=== PATIENT | male | born 1945 | race Caucasian/White ===

== ENCOUNTER 2019-06-18 09:47 | Emergency (ER) | payer MEDICARE, BC ==
[2019-06-18] MEDS ORDERED: ISOVUE-370 76%-LOCM 1 ML ONE (10:13)
--- NOTE | 2019-06-18 10:28 | RAD ---
PORTABLE CHEST: Date: 06/18/19 HISTORY: Cough, dyspnea. COMPARISON: 09/20/17 study. FINDINGS: Heart size and mediastinum are within normal limits. The lungs are clear of any infiltrative process. No significant bony findings. IMPRESSION: No active intrathoracic disease. POS: [facility]
[2019-06-18 11:02] LABS: #Basophils 0.1 thou/uL (0.0-0.2); #Eosinphils 1.4 thou/uL (0.0-0.7); #Lymphocytes 1.8 thou/uL (1.20-3.40); #Monocytes 1.1 thou/uL (0.11-0.59); #Neutrophils 3.8 thou/uL (1.40-6.50); %Basophils 0.6 % (0.0-1.0); %Eosinophils 17.1 % (0.0-10.0); %Lymphocytes 21.6 % (21.0-51.0); %Monocytes 13.9 % (0.0-10.0); %Neutrophils 46.7 % (42.0-75.0); Hemoglobin 15.9 g/dL (14.0-18.0); Mean Corpuscular HGB CONC 34.3 g/dL (32.0-36.0); Mean Corpuscular Hemoglobin 30.8 pg (27.0-31.0); Mean Corpuscular Volume 89.8 fL (78.0-98.0); RBC Distribution Width 14.1 % (11.5-14.5); Red Blood Cell (RBC) Count 5.15 mill/uL (4.70-6.10); White Blood Cell (WBC) Count 8.1 thou/uL (4.8-10.8)
[2019-06-18 11:20] LABS: ALT (SGPT) 22 U/L (8-55); AST (SGOT) 30 U/L (5-34); Albumin 4.3 g/dL (3.4-4.8); Alkaline Phosphatase 140 U/L (40-110); Anion Gap 12 mmol/L (10-20); BUN (Urea Nitrogen) 20 mg/dL (8.4-25.7); Bilirubin, Total 0.9 mg/dL (0.2-1.2); CK (CPK) 127 U/L (30-200); Calc. Creatinine Clearance 0 mL/min (70-130); Calcium 9.6 mg/dL (7.8-10.44); Carbon Dioxide 29 mmol/L (23-31); Chloride 97 mmol/L (98-107); Estimated GFR-MDRD 79; Glucose 112 mg/dL (83-110); Potassium 4.1 mmol/L (3.5-5.1); Protein, Total 7.3 g/dL (5.8-8.1); Sodium 134 mmol/L (136-145)
[2019-06-18 11:25] LABS: MDiff Complete? YES; Mean Platelet Volume 7.3 fL (7.4-10.4); Platelet Count 116 thou/uL (130-400); Platelet Morphology Comment Appears Decreased; Polychromasia SLIGHT = 2-3 cells (100X) (0-2/hpf); Tear Drops SLIGHT = 2-5 cells (100X) (0-1/hpf)
[2019-06-18] MEDS ORDERED: methylPREDNISolone Sod Succ/PF 125 MG/2 ML VIAL ONE (12:05)
[2019-06-18] MEDS ORDERED: cefTRIAXone\\ROCEPHIN 1 GM VIAL ONE (12:05)
[2019-06-18] MEDS ORDERED: Azithromycin 500 MG in Sodium Chloride 0.9% 250 ML 250 ML IVPB SCH (12:15)
[2019-06-18] MEDS ORDERED: Azithromycin 500 MG VIAL ONE (13:05)
--- NOTE | 2019-06-18 14:44 | CT ---
CT CHEST WITH IV CONTRAST: Date: 06/18/19 HISTORY: Shortness of breath. Cough. FINDINGS: There are a few prominent but nonenlarged lymph nodes in the mediastinum and hilar regions. No pleura l or pericardial effusions are seen. The thoracic aorta is well opacified without aneurysm or dissect ion. No pneumothoraces, lobar consolidation, lung nodules, or masses are identified. There are degene rative changes in the spine. Upper abdominal tomograms are unremarkable. IMPRESSION: No significant abnormalities are seen. POS: [facility]
== END 2019-06-18 15:11 | disposition home or self-care (01) ==
LOC: ERS 09:47
DX: J45.909 Unspecified asthma, uncomplicated (principal); I10 Essential (primary) hypertension; F41.9 Anxiety disorder, unspecified; F32.9 Major depressive disorder, single episode, unspecified; Z79.899 Other long term (current) drug therapy; Z79.82 Long term (current) use of aspirin
CPT/HCPCS: 36415; 71045; 71260; 80053; 82550; 83605; 83880; 84145; 84484; 85025; 87040; 93005; 94640; 96365; 96367; 96375; J0456; J0696; J2930; J7620; Q9966

== ENCOUNTER 2019-09-30 09:31 | Outpatient (CLI) | payer MEDICARE, BC ==
--- NOTE | 2019-09-30 10:02 | RAD ---
2 view chest: [09/30/2019] Comparison:08/12/2019 HISTORY: Dyspnea FINDINGS: Heart and mediastinal contours are grossly unremarkable. No pneumothorax or pleural fluid. No focal consolidation or alveolar edema. IMPRESSION: No acute findings.
== END 2019-09-30 09:32 | disposition home or self-care (01) ==
LOC: RAD 09:31
PROVIDERS: ATTEND Internal Medicine Critical Care Medicine
DX: R06.00 Dyspnea, unspecified (principal)
CPT/HCPCS: 71046

== ENCOUNTER 2019-10-15 12:29 | Inpatient (IN) | payer MEDICARE, BC ==
--- NOTE | 2019-10-15 12:59 | RAD ---
XR Chest 1 View Portable HISTORY: Shortness of breath, dyspnea, fever COMPARISON: 06/18/2019 FINDINGS: The heart size is normal. The lungs are well expanded without focal areas of consolidation, pneumothorax or large pleural effusions. There is suggestion of a small left pleural effusion with adjacent mild infiltrates/atelectatic change.
[2019-10-15 13:09] LABS: Hemoglobin 14.8 g/dL (14.0-18.0); Mean Corpuscular Hemoglobin 28.8 pg (27.0-31.0); Mean Corpuscular Volume 89.9 fL (78.0-98.0); RBC Distribution Width 15.8 % (11.5-14.5); Red Blood Cell (RBC) Count 5.14 mill/uL (4.70-6.10); White Blood Cell (WBC) Count 5.8 thou/uL (4.8-10.8)
[2019-10-15 13:29] LABS: Band 24 % (5-11); Eosinophils 2 % (0-10); Lymphocytes 8 % (21-51); MDiff Complete? YES; Mean Platelet Volume 8.4 fL (7.4-10.4); Monocytes 20 % (0-10); Neutrophil 35 % (42-75); Platelet Count 75 thou/uL (130-400); Platelet Morphology Comment Appears Decreased; Polychromasia SLIGHT = 2-3 cells (100X) (0-2/hpf); Reactive Lymphocytes 10 % (0-10); Tear Drops SLIGHT = 2-5 cells (100X) (0-1/hpf)
[2019-10-15 13:32] LABS: ALT (SGPT) 30 U/L (8-55); AST (SGOT) 50 U/L (5-34); Albumin 3.9 g/dL (3.4-4.8); Alkaline Phosphatase 115 U/L (40-110); Anion Gap 14 mmol/L (10-20); BUN (Urea Nitrogen) 19 mg/dL (8.4-25.7); Bilirubin, Total 0.9 mg/dL (0.2-1.2); Calc. Creatinine Clearance 0 mL/min (70-130); Calcium 9.3 mg/dL (7.8-10.44); Carbon Dioxide 23 mmol/L (23-31); Chloride 100 mmol/L (98-107); Estimated GFR-MDRD 75; Globulin 3.2 g/dL (2.4-3.5); Glucose 80 mg/dL (83-110); Lipase 61 U/L (8-78); Potassium 4.8 mmol/L (3.5-5.1); Protein, Total 7.1 g/dL (5.8-8.1); Sodium 132 mmol/L (136-145)
[2019-10-15] MEDS ORDERED: Cefepime 2 GM VIAL ONE (13:49)
[2019-10-15] MEDS ORDERED: Calcium Carbonate 500 MG ChewTAB PO PRN (14:34)
[2019-10-15] MEDS ORDERED: Ondansetron PF 4 MG/2 ML Vial IVP PRN (14:34)
[2019-10-15] MEDS ORDERED: Ondansetron ODT 4 MG TAB PO PRN (14:34)
[2019-10-15] MEDS ORDERED: hydrALAZINE 20 MG/ML VIAL SLOW IVP PRN (14:37)
[2019-10-15 14:45] LABS: INR-International Normal Ratio 1.1; PTT 31.8 SEC (22.9-36.1); Prothrombin Time 13.9 SEC (12.0-14.7)
[2019-10-15 15:19] LABS: Magnesium 1.8 mg/dL (1.6-2.6)
[2019-10-15] MEDS ORDERED: Vancomycin HCl 500 MG VIAL ONE (16:31)
[2019-10-15 17:00] LABS: Bilirubin Negative (Negative); Blood, Urine Negative (Negative); Clarity Clear (Clear); Glucose, Urine (Dipstick) Normal (Negative); Leukocyte Negative Leu/uL (Negative); Nitrite Negative (Negative); Protein, Urine (Dipstick) Negative (Neg-Trace); Urobilinogen Normal mg/dL (Less than 2)
[2019-10-15 17:47] VITALS: BMI 31.7
[2019-10-15] MEDS: Acetaminophen 325 MG TAB PO PRN (18:37)
[2019-10-15] MEDS: Dextrose 5 % And 0.9 % NaCl 1,000 ML IV SCH (18:38)
[2019-10-15] MEDS ORDERED: Loratadine 10 MG TAB PO PRN (20:39)
[2019-10-15] MEDS ORDERED: clonazePAM 1 MG TAB PO SCH (21:00)
--- NOTE | 2019-10-15 21:25 | HP ---
PRIMARY CARE: Dr. Alegria. CHIEF COMPLAINT: Persistent fever with shortness of breath. The patient failed outpatient therapy. HISTORY OF PRESENT ILLNESS: The patient is a 74-year-old male with hypertension , hyperlipidemia, seasonal allergies, presented to the emergency room with above complaints. History obtained from the patient. No family at the bedside. Over the last 3 months, the patient had shortness of breath that is progressively getting worse. He gets short of breath on [id number] exertion. No wheezing, leg swelling, or orthopnea reported. Over the last 1 week the patient has fever and was started on antibiotics over the last 3 days. He was also evaluated by Dr. Hernandez last month. He also had an echocardiogram last month that showed normal ejection fraction. Flu testing was negative per patient's report. His symptoms progressively got worse, for which his PCP referred him to the emergency room. No cough, chest pain, palpitations, or syncope reported. PAST MEDICAL HISTORY: 1. Hypertension. 2. Hyperlipidemia. 3. Anxiety. 4. Seasonal allergies. 5. Unexplained shortness of breath of 3 months' duration. PAST SURGICAL HISTORY: Reviewed with the patient and none. SOCIAL HISTORY: The patient currently lives at home with his . His is the decision maker. He is full code. No smoking, alcohol, or drug use. FAMILY HISTORY: Negative for premature coronary artery disease. CURRENT HOME MEDICATIONS: 1. Lipitor 40 mg at bedtime. 2. Clonazepam 1 mg at bedtime. 3. Lisinopril/HCTZ daily. 4. Claritin 10 mg daily. 5. Metoprolol/hydrochlorothiazide 50/25 mg as directed. 6. Oxymetazoline nasal spray as needed. 7. Venlafaxine as needed. REVIEW OF SYSTEMS: All other review of systems was reviewed and were found negative. PHYSICAL EXAMINATION: VITAL SIGNS: Temperature 101.8 with pulse rate of 106, respirations of 20, blood pressure of 126/80, O2 saturation 94% on room air. GENERAL: 74-year-old male in mild distress. HEENT: Head atraumatic and normocephalic. Sclerae anicteric. Moist mucous membranes. No oral lesion. NECK: Supple. No JVD appreciated. No carotid bruit. LUNGS: Essentially clear to auscultation bilaterally with few rhonchi. No wheezing or rales appreciated. No accessory muscle use. HEART: S1 and S2 present. Regular. No rubs or gallops. ABDOMEN: Soft. Bowel sounds present. No rebound or guarding. EXTREMITIES: No edema or calf tenderness. NEUROLOGY: Grossly nonfocal. Moves all 4 extremities. PSYCHIATRY: Alert, awake, oriented x3. SKIN: Warm and dry. LYMPH NODES: No palpable lymph nodes in the neck. PERIPHERAL VASCULAR: Radial pulses palpable bilaterally. MUSCULOSKELETAL: No joint swelling or tenderness. LABORATORY FINDINGS: CBC showed WBC of 5.8 with hemoglobin of 14.8, hematocrit 46.2, platelet 75 with 24% bandemia. PT, INR, and PTT in normal range. CRP 7.2. Lactic acid was 1.8. Sodium 132, potassium 4.8, chloride of 100, bicarb 23, BUN of 19, creatinine 0.98. Troponin was negative. Urinalysis was negative. Influenza screen was negative. IMAGING STUDIES: Chest x-ray by my review showed small pleural effusion with infiltrate. Echocardiogram last month showed ejection fraction 60% to 65% with mild mitral regurgitation, mild tricuspid regurgitation. EKG by my review showed sinus rhythm. IMPRESSION: 1. Severe sepsis secondary to pneumonia, failed outpatient therapy. 2. Unexplained shortness of breath of 3 months' duration. 3. Generalized weakness, multifactorial. 4. Hyponatremia. 5. Hypoglycemia. 6. Thrombocytopenia. 7. Anxiety. 8. Hyperlipidemia. PLAN: 1. Patient will be monitored on the medical floor. We will start him on vancomycin, cefepime and azithromycin. Pulmonary team will be consulted. We will start him on gentle IV hydration. Physical Therapy/Occupational Therapy evaluation. We will start him on nebulizer treatments. We will start selected home medications. His home medications needs to be verified. 2. The patient understands the above plan of care. Job ID: [id number] [facility]
[2019-10-15] MEDS: Azithromycin 500 MG in Sodium Chloride 0.9% 250 ML 250 ML IVPB SCH (21:32)
[2019-10-16] MEDS: Vancomycin HCl 1.25 GM in Sodium Chloride 0.9% 250 ML 250 ML IVPB SCH ×2 (02:56→16:23)
[2019-10-16] MEDS: Cefepime 2 GM in Sodium Chloride 0.9% 100 ML IVPB SCH ×2 (02:56→14:27)
[2019-10-16] MEDS: Dextrose 5 % And 0.9 % NaCl 1,000 ML IV SCH ×3 (03:25→20:14)
[2019-10-16 05:55] LABS: Band 15 % (5-11); Eosinophils 1 % (0-10); Lymphocytes 18 % (21-51); MDiff Complete? YES; Mean Corpuscular HGB CONC 32.6 g/dL (32.0-36.0); Mean Corpuscular Hemoglobin 29.1 pg (27.0-31.0); Mean Corpuscular Volume 89.4 fL (78.0-98.0); Mean Platelet Volume 8.5 fL (7.4-10.4); Monocytes 17 % (0-10); Neutrophil 49 % (42-75); Platelet Count 80 thou/uL (130-400); Platelet Morphology Comment Appears Decreased; RBC Distribution Width 16.1 % (11.5-14.5); Red Blood Cell (RBC) Count 4.79 mill/uL (4.70-6.10); White Blood Cell (WBC) Count 6.5 thou/uL (4.8-10.8)
[2019-10-16 06:05] LABS: ALT (SGPT) 27 U/L (8-55); AST (SGOT) 40 U/L (5-34); Albumin 3.6 g/dL (3.4-4.8); Alkaline Phosphatase 106 U/L (40-110); Anion Gap 14 mmol/L (10-20); BUN (Urea Nitrogen) 13 mg/dL (8.4-25.7); Bilirubin, Total 0.9 mg/dL (0.2-1.2); Calc. Creatinine Clearance 101 mL/min (70-130); Calcium 8.5 mg/dL (7.8-10.44); Carbon Dioxide 21 mmol/L (23-31); Chloride 101 mmol/L (98-107); Estimated GFR-MDRD 82; Globulin 2.6 g/dL (2.4-3.5); Glucose 93 mg/dL (83-110); Potassium 4.2 mmol/L (3.5-5.1); Protein, Total 6.2 g/dL (5.8-8.1); Sodium 132 mmol/L (136-145)
[2019-10-16] MEDS ORDERED: FLU VACC TS2019-20(65YR UP)/PF 180 MCG/0.5 ML SYRINGE IM ONE (09:00)
[2019-10-16] MEDS ORDERED: Prevnar 13-Val Conj/PF 0.5 ML SYRINGE IM ONE (09:00)
[2019-10-16] MEDS: Acetaminophen 325 MG TAB PO PRN (09:59)
[2019-10-16] MEDS ORDERED: Dextrose 5 % And 0.9 % NaCl 1,000 ML IV SCH (15:22)
[2019-10-16] MEDS ORDERED: Furosemide 20 MG/2 ML VIAL SLOW IVP SCH (15:30)
[2019-10-16 16:22] LABS: Legionella Urinary Ag Negative (Negative); Strep pneumo Urine Ag NEGATIVE (NEGATIVE)
--- NOTE | 2019-10-16 16:42 | ULT ---
EXAM: Bilateral lower extremity venous Doppler US HISTORY: bilateral lower extremity edema and pain FINDINGS: Grayscale, color-flow, Doppler evaluation, spectral analysis of the bilateral lower extremities venou s structures is performed with 2-D imaging. The bilateral common femoral, superficial femoral, popliteal, posterior tibial, proximal greater saphenous and profunda femoral veins are imaged. There is normal luminal compressibility, flow, and augmentation in the visualized deep venous structu res of the bilateral lower extremities. IMPRESSION: No evidence of a deep vein thrombosis in either lower extremity.
--- NOTE | 2019-10-16 20:15 | PDOC.HOSPP ---
- Subjective Encounter Date: 10/16/19 Encounter Time: 07:30 Subjective: Patient seen and examined for Sepsis. SOB slightly better. Mild dry cough. No new complaints. No overnight events - Objective Vital Signs & Weight: Vital Signs (12 hours) Temp Pulse Pulse Resp BP BP Pulse Ox 10/16/19 18:05 91 16 95 10/16/19 16:34 97.8 F 91 22 H 109/68 95 10/16/19 13:48 98 16 10/16/19 11:09 95 18 92 L 10/16/19 11:00 98.0 F 97 20 109/69 94 L 10/16/19 09:00 109 H 131/73 10/16/19 08:47 104 H 16 96 Pulse Ox 10/16/19 18:05 10/16/19 16:34 10/16/19 13:48 10/16/19 11:09 10/16/19 11:00 10/16/19 09:00 93 L 10/16/19 08:47 Weight Admit Weight 215 lb Weight 215 lb I&O: 10/15/19 10/16/19 10/17/19 06:59 06:59 06:59 Intake Total 1120 Balance 1120 Result Diagrams: 10/16/19 05:11 10/16/19 05:11 Radiology Reviewed by me: Yes (CXR - Pneumonia) Hospitalist ROS - Review of Systems Constitutional: reports: fever, weakness, malaise Gastrointestinal: denies: nausea, vomiting, abdominal pain, diarrhea, constipation, melena, hematochezia, other Genitourinary: denies: dysuria, frequency, incontinence, hematuria, retention, other - Medication Medications: Active Medications Generic Name Dose Route Start Last Admin Trade Name Freq PRN Reason Stop Dose Admin Acetaminophen 650 mg 10/15/19 14:34 10/16/19 09:59 Tylenol PO 650 mg Q4H PRN Administration Headache/Fever/Mild Pain (1-3) Albuterol/Ipratropium 3 ml 10/15/19 22:30 10/16/19 18:05 Duoneb NEB 3 ml [id number] AYE Administration Vancomycin HCl 1.25 gm/ Sodium 250 mls @ 166.667 mls/hr 10/16/19 04:00 16:23 Chloride IVPB 250 mls 0400,1600 AYE Administration Cefepime HCl 2 gm/ Sodium 100 mls @ 200 mls/hr 10/16/19 02:00 10/16/19 14:27 Chloride IVPB 100 mls 0200,1400 AYE Administration Azithromycin 500 mg/ Sodium 250 mls @ 250 mls/hr 10/15/19 20:00 10/15/19 21: 32 Chloride IVPB 250 mls Q24HR AYE Administration - Exam General Appearance: ill appearing Neck: symmetric, no JVD Heart: RRR, no gallops, no rubs, normal peripheral pulses Respiratory: no wheezes, normal chest expansion, rales, rhonchi Gastrointestinal: soft, non-tender, non-distended, normal bowel sounds Extremities: no cyanosis, no clubbing Neurological: no new deficit Psychiatric: normal affect, A&O x 3 Hosp A/P - Plan plan discussed w/ family, DVT proph w/SCDs 1. Severe sepsis secondary to pneumonia ?gram negative. r/o Aspiration 2. Unexplained shortness of breath of 3 months' duration. 3. Generalized weakness, multifactorial. 4. Hyponatremia. 5. Hypoglycemia. 6. Thrombocytopenia. 7. Anxiety. 8. Hyperlipidemia. PLAN: Cont vancomycin,cefepime and azithromycin. Monitor Vancomycin level Reduce IVF Await Pulmonary/ID input. Await cultures Physical Therapy/Occupational Therapy evaluation. Cont nebulizer treatments. Verify home medications
--- NOTE | 2019-10-16 20:28 | CON ---
DATE OF CONSULTATION: 10/16/2019 SERVICE: Pulmonary Medicine. REASON FOR CONSULTATION: Respiratory failure. HISTORY OF PRESENT ILLNESS: The patient is a 74-year-old white male with past medical history significant for essentially nothing. He was in his usual state of health when he started having increasing fevers, chills, shortness of breath, cough, and rigors. This has been going on for about 7 days if not a touch longer. He has been given antibiotics and steroids in the outpatient setting. Unfortunately, his symptoms continued to persist. As such, he presented to the emergency department for additional investigation/evaluation. The patient denies any nausea, vomiting, or diarrhea. The phlegm that he is coughing up is white and thick. He has never had an episode like this previously. He denies any hot, red, or swollen joints, rashes, arthralgias, or myalgias. He has been having some diarrhea ever since initiating these antibiotics. PAST MEDICAL HISTORY: 1. Hypertension. 2. Dyslipidemia. 3. Anxiety disorder. 4. Seasonal allergies. PAST SURGICAL HISTORY: None. SOCIAL HISTORY: Negative for alcohol, tobacco, or illicit drug use. He has no exposure to chemicals, dust, asbestos, or tuberculosis. FAMILY HISTORY: Noncontributory. ALLERGIES: NO KNOWN DRUG ALLERGIES. MEDICATIONS: List of the patient's inpatient medications was reviewed. Couple of small updates were made. REVIEW OF SYSTEMS: General; head, ears, eyes, nose, throat; cardiovascular; respiratory; GI; ; musculoskeletal; neurologic; and skin are negative except as mentioned in the HPI. PHYSICAL EXAMINATION: VITAL SIGNS: Afebrile, pulse 97, blood pressure 109/69, respirations 20, and saturation 94% currently on room air. GENERAL: The patient is awake and alert, in no apparent distress. LUNGS: Wonderful air entry. Dependent crackles are present. There is no prolonged expiratory phase or wheezing present. HEART: Normal rate and regular. ABDOMEN: Soft, nontender, and nondistended. Bowel sounds are positive. MUSCULOSKELETAL: No cyanosis or clubbing. There is trace to 1+ pitting in the bilateral lower extremities. NEUROLOGIC: Grossly nonfocal. LABORATORY DATA: WBC 6.5, hemoglobin 14.0, platelets 80,000 have trended downward significantly, band count was 24% on top of 35% neutrophils on presentation to the emergency department. INR 1.1. Basic metabolic profile and liver function studies are otherwise unremarkable. CRP 7.28, troponin is unremarkable. Lactic acid 1.8. Urinalysis is negative. Influenza A and B have been unremarkable on two separate occasions. This was a PCR study. Urine culture and blood cultures x2 are negative to date. IMAGIN. Echocardiogram demonstrates normal ejection fraction with no significant valvular abnormalities reported. 2. Chest x-ray demonstrates fairly low lung volumes, though I do see cephalization throughout bilateral hilum. There is a small left-sided pleural effusion present. ASSESSMENT: 1. Acute hypoxic respiratory failure. 2. Dyspnea on exertion x3 months. 3. Sepsis without end-organ damage. 4. Diarrhea. DISCUSSION AND PLAN: I will get a C diff antigen and toxin, as well as a stool lactoferrin. IV fluids will be interrupted and I will give him a dose of Lasix today. We will continue our empiric antibiotics directed at possible lung infection, but I truthfully do not see any obvious evidence of pneumonia. Strep and Legionella urine antigens are currently pending. Pulmonary/Critical Care will follow closely. ID consultation had already been placed. 70 minutes have been devoted to this patient in various activities. I personally reviewed all imaging studies and laboratory data noted within this document. For fifty percent of this time, I was interacting with the patient at the bedside or coordinating care with the care team. For the remainder of the time I was immediately available to the patient in the hospital unit. Job ID: [id number] [facility]
[2019-10-16] MEDS ORDERED: clonazePAM 1 MG TAB PO SCH (21:00)
[2019-10-16] MEDS: clonazePAM 1 MG TAB PO PRN (21:52)
[2019-10-16] MEDS: Azithromycin 500 MG in Sodium Chloride 0.9% 250 ML 250 ML IVPB SCH (21:53)
[2019-10-16] MEDS ORDERED: Venlafaxine HCl XR 150 MG CAP PO SCH (22:00)
[2019-10-17] MEDS: Cefepime 2 GM in Sodium Chloride 0.9% 100 ML IVPB SCH ×2 (02:24→14:51)
[2019-10-17] MEDS: Vancomycin HCl 1.25 GM in Sodium Chloride 0.9% 250 ML 250 ML IVPB SCH (02:26)
[2019-10-17 05:39] LABS: Eosinophils 5 % (0-10); Hemoglobin 11.7 g/dL (14.0-18.0); Lymphocytes 33 % (21-51); MDiff Complete? YES; Mean Corpuscular HGB CONC 31.1 g/dL (32.0-36.0); Mean Corpuscular Hemoglobin 27.4 pg (27.0-31.0); Mean Corpuscular Volume 88.1 fL (78.0-98.0); Mean Platelet Volume 7.7 fL (7.4-10.4); Metamyelocyte 2 % (0-0); Monocytes 16 % (0-10); Neutrophil 44 % (42-75); Platelet Count 87 thou/uL (130-400); Platelet Morphology Comment Appears Decreased; RBC Distribution Width 16.1 % (11.5-14.5); Red Blood Cell (RBC) Count 4.27 mill/uL (4.70-6.10); White Blood Cell (WBC) Count 5.6 thou/uL (4.8-10.8)
[2019-10-17 05:43] LABS: ALT (SGPT) 25 U/L (8-55); AST (SGOT) 36 U/L (5-34); Albumin 3.2 g/dL (3.4-4.8); Alkaline Phosphatase 86 U/L (40-110); Anion Gap 11 mmol/L (10-20); BUN (Urea Nitrogen) 9 mg/dL (8.4-25.7); Bilirubin, Total 0.7 mg/dL (0.2-1.2); Calc. Creatinine Clearance 115 mL/min (70-130); Calcium 8.1 mg/dL (7.8-10.44); Carbon Dioxide 23 mmol/L (23-31); Chloride 105 mmol/L (98-107); Estimated GFR-MDRD Greater than 90; Globulin 1.9 g/dL (2.4-3.5); Glucose 97 mg/dL (83-110); Potassium 3.7 mmol/L (3.5-5.1); Protein, Total 5.1 g/dL (5.8-8.1); Sodium 135 mmol/L (136-145)
[2019-10-17 05:44] LABS: Vancomycin, Trough 35.6 ug/mL
[2019-10-17] MEDS ORDERED: VENLAFAXINE HCL 75 MG PO SCH (07:30)
[2019-10-17] MEDS: Atorvastatin Calcium 40 MG TAB PO SCH (08:04)
[2019-10-17] MEDS: Aspirin 325 mg Enteric Coated Tablet PO SCH (08:04)
[2019-10-17] MEDS: Saccharomyces boulardii 250 MG CAP PO SCH (08:04)
[2019-10-17] MEDS: Loratadine 10 MG TAB PO SCH (08:04)
[2019-10-17] MEDS ORDERED: Furosemide 20 MG/2 ML VIAL SLOW IVP SCH (09:00)
--- NOTE | 2019-10-17 10:35 | PRG ---
DATE OF SERVICE: 10/17/2019 SUBJECTIVE: Reilly Zheng says he feels better than he felt yesterday. I reviewed his x-ray from yesterday. He is slightly hazy at the left base. This could be a small effusion or could be the superior aspirate of a posterior infiltrate. OBJECTIVE: VITAL SIGNS: He is afebrile. Heart rate is 92, respiratory rate 16, oximetry is 92% on room air, blood pressure 113/73. LUNGS: Remarkable for fine crackles at his left base. HEART: Regular rhythm. ABDOMEN: Soft. EXTREMITIES: Without asymmetry. He had a Doppler of both veins in both lower extremities with no clots being found. IMPRESSION: 1. ? early pneumonia versus a viral illness leading to a week of fever. 2. Small component of reactive airway/chronic obstructive pulmonary disease based on my evaluation in the office a month ago. 3. Extreme deconditioning. 4. Truncal obesity. Deconditioning is the biggest factor with his dyspnea on exertion based on my evaluation in the office. If he remains afebrile, he can be transitioned to p.o. antibiotics tomorrow. Job ID: [id number]
--- NOTE | 2019-10-17 11:04 | PDOC.HOSPP ---
- Subjective Encounter Date: 10/17/19 Encounter Time: 11:18 Subjective: Patient seen and examined for Sepsis/Pneumonia. Patient just returned from barium swallow. Patient reports productive cough, feeling better after neb treatments. Denies fevers, SOB, chest pain, heart palpitations. No overnight events. - Objective Vital Signs & Weight: Vital Signs (12 hours) Temp Pulse Resp BP Pulse Ox 10/17/19 08:00 92 L 10/17/19 06:48 101 H 16 92 L 10/17/19 04:13 98.2 F 92 16 113/73 92 L 10/17/19 00:27 99.8 F H 115 H 16 110/63 91 L Weight Admit Weight 215 lb Weight 215 lb I&O: 10/16/19 10/17/19 10/18/19 06:59 06:59 06:59 Intake Total 1120 Balance 1120 Result Diagrams: 10/17/19 04:32 10/17/19 04:32 Additional Labs: Microbiology 10/16/19 19:35 Stool Stool Lactoferrin - Final 10/16/19 19:35 Stool C. difficile [facility]DH Antigen & Toxins - Final Radiology Reviewed by me: Yes (Modified speech - reviewed) Hospitalist ROS - Review of Systems Respiratory: reports: cough, dry, SOB with excertion, sputum Cardiovascular: denies: chest pain, palpitations, orthopnea, paroxysmal noc. dyspnea, edema, light headedness, other Gastrointestinal: denies: nausea, vomiting, abdominal pain, diarrhea, constipation, melena, hematochezia, other Genitourinary: denies: dysuria, frequency, incontinence, hematuria, retention, other - Medication Medications: Active Medications Generic Name Dose Route Start Last Admin Trade Name Freq PRN Reason Stop Dose Admin Acetaminophen 650 mg 10/15/19 14:34 10/16/19 09:59 Tylenol PO 650 mg Q4H PRN Administration Headache/Fever/Mild Pain (1-3) Albuterol/Ipratropium 3 ml 10/15/19 22:30 10/17/19 10:49 Duoneb NEB Not Given [id number] AYE Aspirin 325 mg 10/17/19 09:00 10/17/19 08:04 Ecotrin PO 325 mg DAILY AYE Administration Atorvastatin Calcium 40 mg 10/17/19 09:00 10/17/19 08:04 Lipitor PO 40 mg DAILY AYE Administration Clonazepam 1 mg 10/16/19 20:54 10/16/19 21:52 Klonopin PO 1 mg HS PRN Administration Anxiety Vancomycin HCl 1.25 gm/ Sodium 250 mls @ 166.667 mls/hr 10/16/19 04:00 02:26 Chloride IVPB 250 mls 0400,1600 AYE Administration Cefepime HCl 2 gm/ Sodium 100 mls @ 200 mls/hr 10/16/19 02:00 10/17/19 02:24 Chloride IVPB 100 mls 0200,1400 AYE Administration Azithromycin 500 mg/ Sodium 250 mls @ 250 mls/hr 10/15/19 20:00 10/16/19 21: 53 Chloride IVPB 250 mls Q24HR AYE Administration Loratadine 10 mg 10/17/19 09:00 10/17/19 08:04 Claritin PO 10 mg DAILY AYE Administration Saccharomyces Boulardii 250 mg 10/17/19 09:00 10/17/19 08:04 Florastor PO 250 mg DAILY AYE Administration - Exam General Appearance: NAD Heart: RRR, no gallops Respiratory: no wheezes, no rales, rhonchi Gastrointestinal: non-tender, non-distended, normal bowel sounds Extremities: no cyanosis Hosp A/P - Plan DVT proph w/SCDs 1. Severe sepsis secondary to pneumonia ?gram negative. 2. Unexplained shortness of breath of 3 months' duration. 3. Generalized weakness, multifactorial. 4. Hyponatremia. 5. Hypoglycemia. 6. Thrombocytopenia. 7. Anxiety. 8. Hyperlipidemia. 9. Swallow dysfunction PLAN: Cont vancomycin,cefepime and azithromycin Monitor Vancomycin level Reduce IVF Appreciate Pulmonary input. Cont PT/OT Patient refusing diet modification. Cont nebulizer treatments. Oupt Speech treatment
--- NOTE | 2019-10-17 13:16 | RAD ---
MODIFIED BARIUM SWALLOW PERFORMED WITH A SPEECH THERAPIST: Date: 10/17/2019 HISTORY: Feeding difficulties, dysphagia, pneumonia. TECHNIQUE/FINDINGS: The patient was given a variety of materials with thin liquid by spoon that demonstrated penetration and aspiration. With all consistencies, there is fairly persistent spillage to the vallecular level. With larger volumes, there is spillage to the piriform sinus level. With barium-coated cracker, there was some penetration demonstrated. IMPRESSION: Findings as described above. Please refer to speech therapist's report for more complete findings. POS: [facility]
[2019-10-17 15:42] LABS: Vancomycin, Trough 12.4 ug/mL
[2019-10-17] MEDS: Vancomycin 1.5 GRAM/300 ML BAG 1.5 GM in Premix Bag 1 BAG IVPB SCH (17:25)
[2019-10-17] MEDS: Venlafaxine HCl XR 150 MG CAP PO SCH (19:55)
[2019-10-17] MEDS: Azithromycin 500 MG in Sodium Chloride 0.9% 250 ML 250 ML IVPB SCH (19:58)
[2019-10-18] MEDS: clonazePAM 1 MG TAB PO PRN ×2 (00:15→20:51)
[2019-10-18] MEDS: Cefepime 2 GM in Sodium Chloride 0.9% 100 ML IVPB SCH ×2 (01:28→15:19)
[2019-10-18] MEDS: Vancomycin 1.5 GRAM/300 ML BAG 1.5 GM in Premix Bag 1 BAG IVPB SCH ×2 (03:13→15:22)
[2019-10-18 06:56] LABS: #Eosinphils 0.9 thou/uL (0.0-0.7); #Lymphocytes 1.7 thou/uL (1.20-3.40); #Neutrophils 2.8 thou/uL (1.40-6.50); %Basophils 0.6 % (0.0-1.0); %Eosinophils 13.7 % (0.0-10.0); %Lymphocytes 26.2 % (21.0-51.0); %Monocytes 14.9 % (0.0-10.0); %Neutrophils 44.5 % (42.0-75.0); Hemoglobin 11.8 g/dL (14.0-18.0); Mean Corpuscular HGB CONC 33.6 g/dL (32.0-36.0); Mean Corpuscular Hemoglobin 29.8 pg (27.0-31.0); Mean Corpuscular Volume 88.7 fL (78.0-98.0); Mean Platelet Volume 7.3 fL (7.4-10.4); Platelet Count 104 thou/uL (130-400); Red Blood Cell (RBC) Count 3.96 mill/uL (4.70-6.10); White Blood Cell (WBC) Count 6.4 thou/uL (4.8-10.8)
[2019-10-18 07:16] LABS: Anion Gap 11 mmol/L (10-20); BUN (Urea Nitrogen) 10 mg/dL (8.4-25.7); Calc. Creatinine Clearance 115 mL/min (70-130); Calcium 8.3 mg/dL (7.8-10.44); Carbon Dioxide 22 mmol/L (23-31); Chloride 107 mmol/L (98-107); Estimated GFR-MDRD Greater than 90; Glucose 98 mg/dL (83-110); Potassium 4.4 mmol/L (3.5-5.1); Sodium 136 mmol/L (136-145)
[2019-10-18] MEDS: Saccharomyces boulardii 250 MG CAP PO SCH (08:41)
[2019-10-18] MEDS: Aspirin 325 mg Enteric Coated Tablet PO SCH (08:41)
[2019-10-18] MEDS: Loratadine 10 MG TAB PO SCH (08:41)
[2019-10-18] MEDS: Atorvastatin Calcium 40 MG TAB PO SCH (08:41)
--- NOTE | 2019-10-18 12:54 | PRG ---
DATE OF SERVICE: SUBJECTIVE: This morning, he is better, less shortness of breath, less cough. His chest x-ray was normal. I did not see any acute infiltrates. He is coughing some relatively thickish sputum. OBJECTIVE: VITAL SIGNS: His temperature is 97, pulse is 98, respirations 18, and saturations are 100% on room air. CHEST: No wheezing or crackles. CARDIAC: Normal S1 and S2. No gallops. ABDOMEN: No masses. LABORATORY DATA: Unremarkable. Cultures all negative. IMPRESSION: 1. Viral syndrome. 2. Bronchitis. PLAN: I would discontinue all antibiotics. P.o. medication. PT, supportive care. Job ID: [id number]
[2019-10-18] MEDS: Azithromycin 500 MG in Sodium Chloride 0.9% 250 ML 250 ML IVPB SCH (20:09)
[2019-10-18] MEDS: Venlafaxine HCl XR 150 MG CAP PO SCH (20:09)
--- NOTE | 2019-10-18 20:16 | PDOC.HOSPP ---
- Subjective Encounter Date: 10/18/19 Encounter Time: 11:30 Subjective: Patient seen and examined for Sepsis/Pneumonia. SOB improving. Some cough. No other complaints. No overnight events - Objective Vital Signs & Weight: Vital Signs (12 hours) Pulse Resp Pulse Ox 10/18/19 18:57 91 18 95 10/18/19 14:24 88 20 94 L 10/18/19 10:56 98 18 95 Weight Admit Weight 215 lb Weight 215 lb I&O: 10/17/19 10/18/19 10/19/19 06:59 06:59 06:59 Intake Total 1120 2200 1550 Balance 1120 2200 1550 Result Diagrams: 10/18/19 06:41 10/18/19 06:41 Hospitalist ROS - Review of Systems Cardiovascular: denies: chest pain, palpitations, orthopnea, paroxysmal noc. dyspnea, edema, light headedness, other Gastrointestinal: denies: nausea, vomiting, abdominal pain, diarrhea, constipation, melena, hematochezia, other - Medication Medications: Active Medications Generic Name Dose Route Start Last Admin Trade Name Freq PRN Reason Stop Dose Admin Acetaminophen 650 mg 10/15/19 14:34 10/16/19 09:59 Tylenol PO 650 mg Q4H PRN Administration Headache/Fever/Mild Pain (1-3) Aspirin 325 mg 10/17/19 09:00 10/18/19 08:41 Ecotrin PO 325 mg DAILY AYE Administration Atorvastatin Calcium 40 mg 10/17/19 09:00 10/18/19 08:41 Lipitor PO 40 mg DAILY AYE Administration Clonazepam 1 mg 10/16/19 20:54 10/18/19 00:15 Klonopin PO 1 mg HS PRN Administration Anxiety Azithromycin 500 mg/ Sodium 250 mls @ 250 mls/hr 10/15/19 20:00 10/18/19 20: 09 Chloride IVPB 10/18/19 23:59 250 mls Q24HR AYE Administration Loratadine 10 mg 10/17/19 09:00 10/18/19 08:41 Claritin PO 10 mg DAILY AYE Administration Saccharomyces Boulardii 250 mg 10/17/19 09:00 10/18/19 08:41 Florastor PO 250 mg DAILY AYE Administration Venlafaxine HCl 150 mg 10/17/19 21:00 02/08/20 20:09 Effexor Xr PO 150 mg HS AYE Administration - Exam Heart: RRR, no murmur, no gallops Respiratory: no wheezes, no rales, rhonchi Gastrointestinal: non-tender, non-distended Extremities: no clubbing Hosp A/P - Plan 1. Severe sepsis secondary to pneumonia ?gram negative. 2. Unexplained shortness of breath of 3 months' duration. 3. Generalized weakness, multifactorial. 4. Hyponatremia. 5. Hypoglycemia. 6. Thrombocytopenia. 7. Anxiety. 8. Hyperlipidemia. 9. Swallow dysfunction PLAN: DC vancomycin,cefepime and azithromycin DC IVF Change nebs to Q4h while awake Add PO Doxycycline Patient refusing diet modification. Oupt Speech treatment. DC in 24 hr if stable
[2019-10-18 20:29] VITALS: BP 131/82; TEMP 97.5
[2019-10-18] MEDS: Doxycycline 100 MG CAP PO SCH (20:51)
[2019-10-19] MEDS: Saccharomyces boulardii 250 MG CAP PO SCH (09:01)
[2019-10-19] MEDS: Aspirin 325 mg Enteric Coated Tablet PO SCH (09:01)
[2019-10-19] MEDS: Doxycycline 100 MG CAP PO SCH (09:01)
[2019-10-19] MEDS: Atorvastatin Calcium 40 MG TAB PO SCH (09:01)
[2019-10-19] MEDS: Loratadine 10 MG TAB PO SCH (09:01)
--- NOTE | 2019-10-19 12:07 | DIS ---
DATE OF ADMISSION: 10/15/2019 DATE OF DISCHARGE: 10/19/2019 DISCHARGE DISPOSITION: Home. FOLLOWUP: 1. Follow up with primary care physician, Dr. Jalyn Alegria in 1 week. 2. Follow up with Dr. Hernandez in 2 weeks. 3. Repeat chest x-ray after 4 weeks is recommended. Primary care physician advised to follow. DISCHARGE MEDICATION: 1. Doxycycline 100 mg b.i.d. for next 5 days. 2. Metoprolol succinate was reduced to 25 mg daily from 25 mg 3 times a day. The patient was advised to increase it to b.i.d. if his blood pressure remains elevated. 3. All other home medications were left unchanged. BRIEF HOSPITAL COURSE: The patient is a 74-year-old male who presented to the emergency room with persistent fever along with shortness of breath of almost three months duration. He failed outpatient therapy. He was started on IV vancomycin, cefepime along with azithromycin. He had 24% bandemia on admission that has cleared. He was evaluated by Pulmonary, Dr. Hernandez. Antibiotics have been switched to p.o. On the day of discharge, he appears stable. He is saturating 95% on room air with heart rate of 89, temperature of 97.5. He has been afebrile almost for last 48 hours. SIGNIFICANT LABS: Sodium 132 on admission, at discharge 136. Platelet of 75 on admission, at discharge is 104. Repeat CBC after 1 to 2 weeks is recommended. Primary care physician advised to follow. CRP 7.29. Urine was negative for Strep pneumoniae and Legionella. Stool was negative for C diff. Stool lactoferrin was positive. Influenza was negative by NA[facility] as well. Blood cultures negative. Urine culture negative. FINAL DIAGNOSES: 1. Severe sepsis secondary to pneumonia, failed outpatient therapy. 2. Unexplained shortness of breath of 3 months duration, suspected secondary to reactive airway disease. The patient follows Dr. Hernandez. 3. Generalized weakness, multifactorial. 4. Hyponatremia. 5. Hypoglycemia. 6. Thrombocytopenia, improving. 7. Anxiety. 8. Hyperlipidemia. 9. Patient and the family understand the above plan of care. Job ID: [id number]
== END 2019-10-19 11:34 | disposition home or self-care (01) | DRG 871 ==
LOC: ERS 12:29 → T4-A 14:53
PROVIDERS: ADMIT Internal Medicine; ATTEND Internal Medicine
DX: A41.9 Sepsis, unspecified organism (principal); J18.9 Pneumonia, unspecified organism; J96.01 Acute respiratory failure with hypoxia; E87.1 Hypo-osmolality and hyponatremia; I10 Essential (primary) hypertension; R65.20 Severe sepsis without septic shock; E78.5 Hyperlipidemia, unspecified; F41.9 Anxiety disorder, unspecified; Z79.899 Other long term (current) drug therapy; E16.2 Hypoglycemia, unspecified; D69.6 Thrombocytopenia, unspecified; E66.8 Other obesity; Z68.31 Body mass index [BMI] 31.0-31.9, adult
CPT/HCPCS: 36415; 71045; 74230; 80048; 80053; 80202; 81003; 83605; 83630; 83690; 83735; 84100; 84484; 85007; 85025; 85027; 85610; 85730; 86140; 87040; 87086; 87324; 87449; 87631; 87804; 87899; 93005; 93970; 96365; 96366; 96375; J0456; J0692; J1940; J1956; J3370; J3490; J7050; J7620

== ENCOUNTER 2020-04-07 08:43 | Outpatient (CLI) | payer MEDICARE, BC ==
--- NOTE | 2020-04-07 10:08 | CT ---
CT OF THE CHEST, ABDOMEN AND PELVIS WITH IV CONTRAST INDICATION: Elevated liver enzymes and fever of unknown origin with bilateral flank pain experienced with fevers COMPARISON: CT of the thorax dated June 18, 2019 FINDINGS: CHEST: Lungs: There is mild left basilar atelectasis. No suspicious pulmonary nodule or acute infiltrate is demonstrated. There is subsegmental volume loss is present within the superior segment of the right lower lobe. Pleural space: No effusion. Mediastinum: The right paratracheal lymph node present measuring 7.7 mm now measures 9 mm. No patholo gically enlarged lymph node is evident. There is subcarinal lymph node is stable measuring 1.1 cm. There are mild coronary artery and thoracic aortic calcifications. Axilla: There is been interval development of enlarged lymph nodes within the axilla, right greater than left. One of the largest lymph nodes within the right axilla measures 1.8 cm on image 27 of series 2. There is slight prominence of the axillary lymph nodes on the left with the largest measuri ng 8 mm on image 19 of series 2. ABDOMEN: Liver: No focal lesion. Gallbladder: Normal appearing. Pancreas: Normal. Adrenal glands: Normal. Spleen: Enlarged measuring 13.5 cm Kidneys and ureters: There is a retroaortic left renal vein. No solid renal lesion is demonstrated. T here are small bilateral renal cysts. No hydronephrosis is demonstrated. Vasculature: There are mild vascular calcifications seen involving the visualized vasculature. Lymph nodes:There are enlarged lymph nodes within the para-aortic and aortocaval region of the retrop eritoneum. One of the largest is seen within the anterior aortocaval region measuring 2.8 cm image 85 of series 2. An additional enlarged lymph node within the left periaortic region is seen on image 77 of series 2 measuring 2.3 cm. Free fluid in abdomen:No free fluid is evident. PELVIS: Small and large bowel: Colonic diverticulosis without evidence of active diverticulitis. Appendix:Not definitely seen Bladder: Normal. Rectal and perirectal soft tissues:Normal. Reproductive structures: Normal. Free fluid in pelvis: No free fluid is evident. Lymphadenopathy pelvis: No lymphadenopathy is evident. Osseous structures: There is mild levoscoliosis of the lumbar spine. No acute fracture or subluxation is demonstrated. There is scattered degenerative and osteoarthritic changes. Soft tissues:Normal. IMPRESSION: 1. Enlarged lymph nodes of the right axilla and abdominal retroperitoneum with splenomegaly is suspic ious for entities such as lymphoma. Recommend consideration for ultrasound-guided biopsy of the enlarged lymph node of the right axilla. Flow cytometry of this biopsy should be requested. 2. No focal hepatic lesion. 3. Colonic diverticulosis without evidence of active diverticulitis.
[2020-04-07] MEDS ORDERED: Iopamidol-370 76% 500 ML 1 ML ONE (10:34)
== END 2020-04-07 08:44 | disposition home or self-care (01) ==
LOC: BICCT 08:43
PROVIDERS: ATTEND Internal Medicine Gastroenterology
DX: R50.9 Fever, unspecified (principal); R89.0 Abnormal level of enzymes in specimens from other organs, systems and tissues; R59.0 Localized enlarged lymph nodes; K57.30 Diverticulosis of large intestine without perforation or abscess without bleeding
CPT/HCPCS: 71260; 74177; 82565; Q9967

== ENCOUNTER 2020-05-04 08:17 | Day surgery (SDC) | payer MEDICARE, BC, OTHER ==
[2020-05-03 09:32] VITALS: BMI 28.8
[2020-05-04 08:45] LABS: INR-International Normal Ratio 1.1; PTT 28.4 sec (22.9-36.1); Prothrombin Time 14.1 sec (12.0-14.7)
[2020-05-04 10:13] VITALS: BP 119/73; TEMP 98.5
--- NOTE | 2020-05-04 12:15 | CT ---
CT-guided left iliac crest bone marrow biopsy and aspirate INDICATION: Large B-cell lymphoma TECHNIQUE: Consent was obtained. The patient was placed prone on CT table. Site overlying the left po sterior iliac crest marked. Site was prepped and draped in usual sterile fashion. Buffered 1% lidocaine was administered in the overlying subcutaneous tissues. Patient underwent conscious sedatio n under guidance of the radiology nurse and received 50 mcg of IV fentanyl and 1 mg of IV Versed. Following this utilizing an arrow on control bone marrow biopsy kit, a biopsy needle was guided down into the medullary cavity of the posterior left iliac crest. Sampling was obtained of the bone marrow aspirate first with a 3 mL aspirate followed by 7 mL aspirate. Following this a 1 cm core biop sy was obtained utilizing the sterilized drill. Pressure was held at the biopsy site until hemostasis was obtained. Patient tolerated the procedure without difficulty. The broadband technician was o n-site to acquire the specimen as they were obtained. Impression: Successful CT-guided left iliac crest bone marrow biopsy and aspirate Transcribed Date/Time: 05/04/2020 1:35 PM
--- NOTE | 2020-05-05 11:04 | CT ---
CT-guided left iliac crest bone marrow biopsy and aspirate INDICATION: Large B-cell lymphoma TECHNIQUE: Consent was obtained. The patient was placed prone on CT table. Site overlying the left po sterior iliac crest marked. Site was prepped and draped in usual sterile fashion. Buffered 1% lidocaine was administered in the overlying subcutaneous tissues. Patient underwent conscious sedatio n under guidance of the radiology nurse and received 50 mcg of IV fentanyl and 1 mg of IV Versed. Following this utilizing an arrow on control bone marrow biopsy kit, a biopsy needle was guided down into the medullary cavity of the posterior left iliac crest. Sampling was obtained of the bone marrow aspirate first with a 3 mL aspirate followed by 7 mL aspirate. Following this a 1 cm core biop sy was obtained utilizing the sterilized drill. Pressure was held at the biopsy site until hemostasis was obtained. Patient tolerated the procedure without difficulty. The anaesthetic technician was o n-site to acquire the specimen as they were obtained. Impression: Successful CT-guided left iliac crest bone marrow biopsy and aspirate Transcribed Date/Time: 05/05/2020 11:04 AM
== END 2020-05-04 12:35 | disposition home or self-care (01) ==
LOC: CT 08:17
PROVIDERS: ATTEND Internal Medicine Hematology & Oncology
PROC: 07DR3ZX Extraction of Iliac Bone Marrow, Percutaneous Approach, Diagnostic (ICD-10-PCS; principal; 2020-05-04)
DX: C83.34 Diffuse large B-cell lymphoma, lymph nodes of axilla and upper limb (principal); M19.90 Unspecified osteoarthritis, unspecified site; E78.00 Pure hypercholesterolemia, unspecified; I10 Essential (primary) hypertension; F41.9 Anxiety disorder, unspecified; F32.9 Major depressive disorder, single episode, unspecified; Z87.891 Personal history of nicotine dependence; Z79.899 Other long term (current) drug therapy; Z79.52 Long term (current) use of systemic steroids; Z20.828 Contact with and (suspected) exposure to other viral communicable diseases
CPT/HCPCS: 20225; 77002; 80048; 85025; 85097; 85610; 85730; 88184; 88185; 88237; 88264; 88280 ×2; 88305; 88311; 88313; 88341; 88342; 93005; U0003; 36415; 87635

== ENCOUNTER 2020-05-05 13:14 | Outpatient (CLI) | payer MEDICARE, BC ==
[~2020-05-05 13:14] MED LIST: Fentanyl 100 MCG/2 ML VIAL ONE; Midazolam HCl 2 mg/2 ml Vial ONE; Sodium Bicarbonate 2.5 MEQ/5 ML VIAL ONE
== END 2020-05-05 13:15 | disposition home or self-care (01) ==
LOC: ULT 13:14
PROVIDERS: ATTEND Internal Medicine Hematology & Oncology
DX: Z51.11 Encounter for antineoplastic chemotherapy (principal); C83.36 Diffuse large B-cell lymphoma, intrapelvic lymph nodes; I08.1 Rheumatic disorders of both mitral and tricuspid valves; Z79.899 Other long term (current) drug therapy
CPT/HCPCS: 93306; J2250; J3010

== ENCOUNTER 2020-05-07 09:10 | Day surgery (SDC) | payer MEDICARE, BC ==
[2020-05-05 12:18] VITALS: BMI 28.7
[2020-05-07] MEDS ORDERED: Acetaminophen 500 MG TAB ONE (10:24)
[2020-05-07] MEDS ORDERED: Ketorolac Tromethamine 30 MG/ML VIAL ONE (10:25)
[2020-05-07] MEDS ORDERED: Lidocaine 1% w/Epinephrine 1:100K 20 ML VIAL ONE (11:29)
[2020-05-07] MEDS ORDERED: Bupivacaine 0.25% HCL 30 ML VIAL ONE (11:29)
[2020-05-07] MEDS ORDERED: PROPOFOL 200 MG/20 ML VIAL ONE (11:51)
[2020-05-07] MEDS ORDERED: Lidocaine 1% PF 5 ML VIAL ONE (11:51)
[2020-05-07] MEDS ORDERED: Dexamethasone 20 MG/5 ML VIAL ONE (11:51)
[2020-05-07] MEDS ORDERED: Ondansetron PF 4 MG/2 ML Vial ONE (11:51)
[2020-05-07] MEDS ORDERED: Propofol 500 MG/50 ML VIAL ONE (12:13)
[2020-05-07] MEDS ORDERED: Fentanyl 100 MCG/2 ML VIAL ONE (12:13)
--- NOTE | 2020-05-08 23:22 | OP ---
DATE OF PROCEDURE: 05/07/2020 PREOPERATIVE DIAGNOSIS: Lymphoma. POSTOPERATIVE DIAGNOSIS: Lymphoma. PROCEDURE PERFORMED: Placement of right subclavian standard-sized power compatible MediPort. ANESTHESIA: Total intravenous anesthesia with local using a mixture of 1% lidocaine with epinephrine and 0.25% Marcaine. INDICATIONS: Patient is a 74-year-old white male. He is status post axillary lymph node biopsy, which confirmed lymphoma. He was taken to the operating room at this time for MediPort placement for chemotherapy administration. DESCRIPTION OF OPERATION: Informed consent was obtained. The patient was taken to the operating room where total intravenous anesthesia was obtained with the patient in supine position. Right periclavicular area was prepped with ChloraPrep and draped in sterile fashion. Local anesthetic was infiltrated and a large-gauge needle was passed under the clavicle in the subclavian vein. Guidewire was passed through the needle and fluoroscopically confirmed to enter the superior vena cava. Additional local anesthetic was infiltrated and transverse incision was created based on needle insertion site. A subcutaneous pocket was dissected inferiorly. Introducer dilator was passed over the guidewire under fluoroscopic guidance. The guidewire and dilator were removed, and the catheter was passed through the introducer. The tip of the catheter was positioned at the atriocaval junction and the catheter was trimmed to the appropriate length and secured to the locking hub of the MediPort. The port was then placed in the subcutaneous pocket where it was secured to the pectoral fascia with 2 interrupted sutures of 3-0 Prolene. The incision was then closed in layers with 3-0 and 4-0 Monocryl. Additional local anesthetic was infiltrated. The port was cannulated with a Krishna needle and it aspirated blood freely and was flushed with heparinized saline. Dermabond was placed externally on the skin incision. There were no complications. Blood loss was negligible. The patient tolerated the procedure well and was taken to recovery room in stable condition. FINDINGS: I chose a standard size port secondary to the patient's body habitus. This was placed uneventfully into the right subclavian vein. Fluoroscopy was used throughout the procedure. There was essentially no blood loss and there were no complications. Patient tolerated the procedure well and was taken to Recovery in stable condition. Job ID: [id number]
--- NOTE | 2020-05-10 07:27 | RAD ---
Chest AP view INDICATION: Mediport placement COMPARISON: April 19, 2020 FINDINGS: Lungs: There is mild right basilar subsegmental atelectasis. This is likely related to the depth of inspiration. Cardiac silhouette: The cardiomediastinal silhouette appears within normal limits. Pulmonary vasculature: Normal Pleural spaces: No pleural effusion or pneumothorax is demonstrated. Upper abdomen: No abnormality seen. Osseous structures: No acute osseous abnormality. Additional findings: There is a new right subclavian chest wall Mediport in place. The tip of the ca theter is projecting in the region of the SVC. IMPRESSION: New chest wall Mediport. No evidence for pneumothorax. Mild subsegmental volume loss in the right bud g base, likely related to depth of inspiration.
== END 2020-05-07 15:15 | disposition home or self-care (01) ==
LOC: SDC 09:10
PROVIDERS: ATTEND Specialist
PROC: 0JH60WZ Insertion of Totally Implantable Vascular Access Device into Chest Subcutaneous Tissue and Fascia, Open Approach (ICD-10-PCS; principal; 2020-05-07)
PROC: 02HV33Z Insertion of Infusion Device into Superior Vena Cava, Percutaneous Approach (ICD-10-PCS; 2020-05-07)
PROC: B518ZZA Fluoroscopy of Superior Vena Cava, Guidance (ICD-10-PCS; 2020-05-07)
DX: C83.34 Diffuse large B-cell lymphoma, lymph nodes of axilla and upper limb (principal); F32.9 Major depressive disorder, single episode, unspecified; F41.9 Anxiety disorder, unspecified; Z79.52 Long term (current) use of systemic steroids; Z79.899 Other long term (current) drug therapy
CPT/HCPCS: 36561; 71045; C1788; J0690; J1642; J1885; J2704; J3010; S0020

== ENCOUNTER 2020-05-11 10:19 | Outpatient (CLI) | payer MEDICARE, BC ==
--- NOTE | 2020-05-11 13:53 | PET ---
Radionucleotide PET scan with CT attenuation correction HISTORY: Diffuse large B-cell lymphoma. Initial staging. FINDINGS: Physiologic uptake of radiotracer throughout the enteric system and along each urinary trac t. There is striking heterogeneous widespread increase in activity throughout the appendicular and axial skeleton. No corresponding morphologic mass on the CT images. There are degenerative changes th roughout the spine. Right axillary lymph nodes are much smaller than on the prior study, measuring up to 0.7 cm greatest short axis diameter. Max SUV 1.3. No enlarged lymph nodes remain within the mediastinum. Max SUV of precarinal lymph node 1.7. Left retroperitoneal lymph node immediately posterior to the left renal vein now measures up to 1.6 c m short axis diameter (previously 2.3 cm). Max SUV 1.4. Right subclavian Mediport now in place. IMPRESSION : Interval reduction in size of right axillary and retroperitoneal lymph nodes with no hypermetabolic a ctivity on today's exam. Prominent reactive hyperplasia of the bone marrow.
== END 2020-05-11 10:20 | disposition home or self-care (01) ==
LOC: PET 10:19
PROVIDERS: ATTEND Internal Medicine Hematology & Oncology
DX: C83.30 Diffuse large B-cell lymphoma, unspecified site (principal); D75.89 Other specified diseases of blood and blood-forming organs
CPT/HCPCS: 78815; A9552

== ENCOUNTER 2020-07-08 09:45 | Outpatient (CLI) | payer MEDICARE, BC ==
--- NOTE | 2020-07-08 10:15 | RAD ---
XR Chest Pa Lat STANDARD HISTORY: Dyspnea. Lymphoma COMPARISON: 05/07/2020 FINDINGS: The heart size is normal. The aorta is tortuous. A right-sided Port-A-Cath remains in place . The lungs are well expanded without focal areas of consolidation, pneumothorax or large pleural effusions. Blunting of the left lateral osteogenic angle is again seen. IMPRESSION: No radiographic evidence of acute cardiopulmonary process.
== END 2020-07-08 09:46 | disposition home or self-care (01) ==
LOC: BICRAD 09:45
PROVIDERS: ATTEND Internal Medicine Critical Care Medicine
DX: R06.00 Dyspnea, unspecified (principal)
CPT/HCPCS: 71046

== ENCOUNTER 2020-07-15 08:46 | Outpatient (CLI) | payer MEDICARE, BC ==
--- NOTE | 2020-07-15 12:26 | PET ---
Radionucleotide PET scan with CT attenuation correction HISTORY: Nodular sclerosis classical Hodgkin lymphoma intra-abdominal lymph nodes. Restaging. COMPARISON: 05/11/2020. FINDINGS: Markedly increased heterogeneous uptake again demonstrated throughout the axial and appendi cular skeleton. Overall less pronounced than on the prior study. As an example, max SUV uptake at the manubrium now 5.2 (previously 8.2). No abnormal uptake is apparent at the axillary, mediastinal, retroperitoneal lymph nodes. The left re troperitoneal lymph node immediately posterior to the left renal artery is now 0.7 cm short axis diameter. Mildly heterogeneous uptake is noted around the gallbladder fossa within the liver, although no focal mass is apparent. IMPRESSION : No evidence of recurrent disease. Heterogeneous reactive uptake throughout the skeleton is less intense than on the prior exam. Douville score 1.
== END 2020-07-15 08:47 | disposition home or self-care (01) ==
LOC: PET 08:46
PROVIDERS: ATTEND Internal Medicine Hematology & Oncology
DX: C81.13 Nodular sclerosis Hodgkin lymphoma, intra-abdominal lymph nodes (principal)
CPT/HCPCS: 78815; A9552

== ENCOUNTER 2020-11-23 08:52 | Outpatient (CLI) | payer MEDICARE, BC | END 2020-11-23 08:53 | disposition home or self-care (01) | LOC: PET 08:52 | PROVIDERS: ATTEND Internal Medicine Hematology & Oncology | DX: C81.13 Nodular sclerosis Hodgkin lymphoma, intra-abdominal lymph nodes (principal) | CPT/HCPCS: 78815; A9552 ==

== ENCOUNTER 2021-05-13 09:55 | Outpatient (CLI) | payer MEDICARE, BC ==
[~2021-05-13 09:55] MED LIST changes: -Fentanyl 100 MCG/2 ML VIAL ONE; +Iopamidol-370 76% 500 ML 1 ML ONE; -Midazolam HCl 2 mg/2 ml Vial ONE; -Sodium Bicarbonate 2.5 MEQ/5 ML VIAL ONE
== END 2021-05-13 09:56 | disposition home or self-care (01) ==
LOC: BICCT 09:55
PROVIDERS: ATTEND Internal Medicine Hematology & Oncology
DX: C81.13 Nodular sclerosis Hodgkin lymphoma, intra-abdominal lymph nodes (principal)
CPT/HCPCS: 71260; 74177; 82565; Q9967

== ENCOUNTER 2021-11-11 09:17 | Outpatient (CLI) | payer MEDICARE, BC ==
[2021-11-11] MEDS ORDERED: Iopamidol 370 76% 100 ML VIAL ONE (11:11)
== END 2021-11-11 09:18 | disposition home or self-care (01) ==
LOC: CT 09:17
PROVIDERS: ATTEND Internal Medicine Hematology & Oncology
DX: C81.13 Nodular sclerosis Hodgkin lymphoma, intra-abdominal lymph nodes (principal)
CPT/HCPCS: 71260; 74177; 82565; Q9967

== ENCOUNTER 2022-05-23 09:13 | Outpatient (CLI) | payer MEDICARE, BC ==
[2022-05-23] MEDS ORDERED: Iopamidol 370 76% 100 ML VIAL ONE (10:38)
== END 2022-05-23 09:14 | disposition home or self-care (01) ==
LOC: CT 09:13
PROVIDERS: ATTEND Internal Medicine Hematology & Oncology
DX: C81.13 Nodular sclerosis Hodgkin lymphoma, intra-abdominal lymph nodes (principal)
CPT/HCPCS: 71260; 74177; 82565; Q9967

== ENCOUNTER 2022-12-22 12:32 | Outpatient (CLI) | payer MEDICARE, BC ==
[~2022-12-22 12:32] MED LIST changes: +Iopamidol 370 76% 100 ML VIAL ONE; -Iopamidol-370 76% 500 ML 1 ML ONE
== END 2022-12-22 12:33 | disposition home or self-care (01) ==
LOC: CT 12:32
PROVIDERS: ATTEND Internal Medicine Hematology & Oncology
DX: C81.13 Nodular sclerosis Hodgkin lymphoma, intra-abdominal lymph nodes (principal); R91.1 Solitary pulmonary nodule; N28.1 Cyst of kidney, acquired; I71.40 Abdominal aortic aneurysm, without rupture, unspecified; K57.30 Diverticulosis of large intestine without perforation or abscess without bleeding; M47.816 Spondylosis without myelopathy or radiculopathy, lumbar region; N42.89 Other specified disorders of prostate
CPT/HCPCS: 71260; 74177; Q9967

== ENCOUNTER 2023-07-02 09:35 | Outpatient (CLI) | payer MEDICARE, BC | END 2023-07-02 09:36 | disposition home or self-care (01) | LOC: BICCT 09:35 | PROVIDERS: ATTEND Internal Medicine Hematology & Oncology | DX: C81.13 Nodular sclerosis Hodgkin lymphoma, intra-abdominal lymph nodes (principal); J98.4 Other disorders of lung | CPT/HCPCS: 71260; 74177; 82565; Q9967 ==

== ENCOUNTER 2024-04-07 10:55 | Outpatient (CLI) | payer MEDICARE, BC ==
[2024-04-07 12:22] LABS: #Basophils 0.06 10x3/uL (0.0-0.2); #Eosinphils 0.24 10x3/uL (0.0-0.5); #Monocytes 0.73 10x3/uL (0.0-1.1); #Neutrophils 4.76 10x3/uL (1.5-8.4); %Basophils 0.8 % (0.0-2.0); %Eosinophils 3.1 % (0.0-6.0); %Lymphocytes 24.1 % (18.0-47.0); %Monocytes 9.5 % (0.0-10.0); %Neutrophils 62.2 % (40.0-75.0); Hematocrit 50.5 % (38.8-50.0); Hemoglobin 17.2 g/dL (13.5-17.5); Mean Corpuscular HGB CONC 34.1 g/dL (32.0-36.0); Mean Corpuscular Hemoglobin 31.3 pg (27.0-33.0); Mean Platelet Volume 10.1 fL (7.4-10.4); Platelet Count 210 10x3/uL (150-450); RBC Distribution Width 13.4 % (11.5-14.5); Red Blood Cell (RBC) Count 5.49 10x6/uL (4.32-5.72); White Blood Cell (WBC) Count 7.7 10x3/uL (3.5-10.5)
[2024-04-07 12:54] LABS: Anion Gap 17 mmol/L (10-20); BUN (Urea Nitrogen) 22 mg/dL (8.4-25.7); Calc. Creatinine Clearance 0 mL/min (70-130); Calcium 10.2 mg/dL (7.8-10.44); Carbon Dioxide 26 mmol/L (23-31); Chloride 106 mmol/L (98-107); Estimated GFR 70; Glucose 92 mg/dL (83-110); Potassium 4.7 mmol/L (3.5-5.1); Sodium 144 mmol/L (136-145)
== END 2024-04-07 10:56 | disposition home or self-care (01) ==
LOC: LABBT 10:55
PROVIDERS: ATTEND Specialist
DX: Z01.818 Encounter for other preprocedural examination (principal); K40.90 Unilateral inguinal hernia, without obstruction or gangrene, not specified as recurrent
CPT/HCPCS: 71046; 80048; 85025; 93005; 93010